=== PATIENT | male | born 2000 | race Caucasian/White ===

== ENCOUNTER 2019-04-07 15:44 | Emergency (ER) | payer OTHER ==
[2019-04-07 15:47] VITALS: BMI 42.9
[2019-04-07 16:00] VITALS: TEMP 98.1
--- NOTE | 2019-04-07 16:29 | PDOC ---
History of Present Illness - General Chief Complaint: Pain, Acute Stated Complaint: ABD PAIN Time Seen by Provider: 04/07/19 16:00 History Source: Patient Exam Limitations: No Limitations - History of Present Illness Initial Comments: 04/07/19 16:23 PCP: None HPI: 19yo M with PMH HLD, obesity, presenting with intermittent abdominal pain for 6 months. Sharp stomach pains - often LLQ or diffuse with movement, no pain with BM, occasional nausea, no vomiting, no fevers or chills, no chest pain. Reports flatus. Travels annually to [place], seen there in October without diagnosis. Endorses diarrhea after spicy foods sometimes. No recent diarrhea, no bloody or dark BMs. NKDA Meds: denies PMH: HLD PSH: Denies SHx: Drinks weekly "to get drunk" and smokes when he drinks, denies illicits Past History - Travel Traveled outside of the country in the last 30 days: No Close contact w/someone who was outside of country & ill: No - Past Medical History Allergies/Adverse Reactions: Allergies Allergy/AdvReac Type Severity Reaction Status Date / Time No Known Allergies Allergy Verified 04/07/19 15:45 Home Medications: Ambulatory Orders NK [No Known Home Medication] 04/07/19 COPD: No - Psycho Social/Smoking Cessation Hx Smoking History: Current some day smoker Number of Cigarettes Smoked Daily: 1 Information on smoking cessation initiated: No Hx Alcohol Use: Yes (OCASIONAL) Drug/Substance Use Hx: No Review of Systems - Review of Systems Able to Perform ROS?: Yes Is the patient limited Guinean proficient: Yes Constitutional: No: Chills, Fever, Night Sweats, Weakness HEENTM: No: Recent change in vision, Nose Congestion, Throat Pain Respiratory: No: Cough, Shortness of Breath, Wheezing, Productive cough Cardiac (ROS): No: Chest Pain, Palpitations, Syncope, Chest Tightness ABD/GI: Yes: Diarrhea (with spicy foods, none recently), Nausea (none recently) . No: Constipated, Vomiting : No: Burning, Dysuria, Frequency, Hematuria Musculoskeletal: No: Muscle Pain, Muscle Weakness Integumentary: No: Bruising, Dryness, Erythema, Pallor, Pruritus Neurological: No: Headache, Numbness, Tingling, Weakness Hematologic/Lymphatic: No: Anemia, Blood Clots, Easy Bleeding All Other Systems: Reviewed and Negative *Physical Exam - Vital Signs Last Vital Signs Temp Pulse Resp BP Pulse Ox 98.1 F 84 18 142/85 100 04/07/19 15:44 04/07/19 15:44 04/07/19 15:44 04/07/19 15:44 04/07/19 15:44 - Physical Exam 04/07/19 16:27 Vitals reviewed, AF, hypertensive 143 SBP GEN: Obese, appears stated age, NAD, comfortable. AAOx3. HEENT: NCAT, EOMI, PERRL. Sclera anicteric, noninjected. No facial asymmetry. Moist mucous membranes. Normal voice. Trachea midline. CV: RRR, S1/S2, no murmurs / rubs / gallops appreciated. LUNG: CTAB, normal work of breathing. No wheezes, rales, rhonchi. No cough. Speaking full sentences. GI: Obese, soft, NTND, +BS, no guarding, no rebound. No masses. Neg CVAT b/l. EXTREMITIES: 2+ distal pulses. No LE edema. No obvious deformities of all extremities. SKIN: Warm, dry, no rashes appreciated, non-jaundiced. PSYCH: Normal mood and affect. Cooperative and appropriate. NEURO: CN grossly intact. Moving all extremities well. Normal strength and sensation grossly. Medical Decision Making - Medical Decision Making 04/07/19 16:39 19yo M with PMH HLD, obesity, presenting with intermittent abdominal pain for 6 months. Concerning for multiple medical comorbidities in a youth - HTN on otherwise unremarkable exam. Will do renal US to evaluate for HTN, provide PCP referral for follow up. R/o new DM. Patient counseled on diet and exercise, risks to his future health and well-being if he doesn't make changes. - UA - POCUS Renal - BGM 04/07/19 17:33 - UA, BGM pending - POCUS with normal kidneys without cysts, masses, or other suspicious lesions Discharge - Discharge Information Problems reviewed: Yes Clinical Impression/Diagnosis: Hypertension Qualifiers: Hypertension type: unspecified Qualified Code(s): I10 - Essential (primary) hypertension Condition: Stable Disposition: HOME - Admission No - Follow up/Referral Referrals: [facility] [place] [Provider Group] - Patient Discharge Instructions Patient Printed Discharge Instructions: DI for Abdominal Pain-Adult, DI for High Blood Pressure in Children, DI for High Cholesterol-Adult Additional Instructions: Please follow up with the provided primary care clinic ([facility]). Call their office to schedule an appointment within the next week. It is very important that you establish skilled nursing care with a general doctor. Return the ED with any worsening, or new concerning symptoms. - Post Discharge Activity
--- NOTE | 2019-04-07 17:40 | PDOC ---
Attending Attestation - Resident Resident Name: Sanchez Walker - ED Attending Attestation I have performed the following: I have examined & evaluated the patient, The case was reviewed & discussed with the resident, I agree w/resident's findings & plan, Exceptions are as noted - HPI HPI: 04/07/19 17:38 19 yo male h/o obesity, high cholesterol currently not on any medication, here with c/o vague intermittent abdominal pain x 6 months. did see a doctor in [place] for this, told he was " too full" denies loose stool except certain foods. no f/c no difficulty with urination, occasioanly sharp pain only worse with pushing, no releiving factors. currently doesn't have the pain. otehrwise stool all nonblooyy. no fever. no weight loss. not on any medications. - Physicial Exam PE: 04/07/19 17:39 awake alert lungs clear bilat heart rrr no mrg abd soft nt obese. ext wwp. no edema. no calf tenderness. - Medical Decision Making 04/07/19 17:39 19 yo male h/o obesity, hld, noted to be htn today . plan d/w pt regarding diet and exercise. concerns for metabolic syndrome. will check ua r/o infection. focused ED ultrasound renal no hydronephrosis. normal size kidney. will recommend fu with [facility] for bp check.
[2019-04-07 18:18] VITALS: BP 145/86; PULSE 78
== END 2019-04-07 18:18 | disposition home or self-care (01) ==
LOC: FER 15:44
DX: I10 Essential (primary) hypertension (principal); E78.5 Hyperlipidemia, unspecified; E66.9 Obesity, unspecified; F17.210 Nicotine dependence, cigarettes, uncomplicated
CPT/HCPCS: 76775; 81003; 82962; 99282-25

== ENCOUNTER 2022-02-02 15:48 | Emergency (ER) | payer SELFPAY ==
[2022-02-02 16:33] VITALS: BP 143/85; PULSE 93; RESP 18; TEMP 98.1; BMI 38.6
[2022-02-02] MEDS ORDERED: MAG HYDROX/AL HYDROX/SIMETH 30 ML UNIT-DOSE CUP PO ONE (18:41)
[2022-02-02] MEDS ORDERED: SODIUM CHLORIDE 1,000 ML IV STA (18:41)
[2022-02-02] MEDS ORDERED: MAG HYDROX/AL HYDROX/SIMETH 30 ML UNIT-DOSE CUP ONE (19:06)
[2022-02-02 19:22] LABS: BASO % 0.7 % (0-2.0); EOS % 3.3 % (0-4.5); HEMATOCRIT 40.8 % (35.4-49); HEMOGLOBIN 13.8 GM/dL (11.7-16.9); LYMPH % 29.3 % (8-40); MCH 30.6 pg (25.7-33.7); MCHC 33.9 g/dl (32.0-35.9); MEAN CELL VOLUME 90.2 fl (80-96); MONO % 5.6 % (3.8-10.2); NEUT % 61.1 % (42.8-82.8); PLATELET COUNT 195 10^3/uL (134-434); RBC 4.53 M/mm3 (4.00-5.60); WHITE BLOOD COUNT 6.6 K/mm3 (4.0-10.0)
[2022-02-02 19:42] LABS: ALBUMIN 4.1 g/dl (3.4-5.0); BLOOD UREA NITROGEN 14.1 mg/dL (7-18); CALCIUM 9.1 mg/dL (8.5-10.1)
[2022-02-02 19:47] LABS: BILIRUBIN,TOTAL 0.5 mg/dL (0.2-1); TOT PROT 7.4 g/dl (6.4-8.2)
== END 2022-02-02 20:47 | disposition home or self-care (01) ==
LOC: JER 15:48
PROC: 3E0337Z Introduction of Electrolytic and Water Balance Substance into Peripheral Vein, Percutaneous Approach (ICD-10-PCS; principal; 2022-02-02)
DX: K29.20 Alcoholic gastritis without bleeding (principal)
CPT/HCPCS: 36415; 80053; 83690; 85025; 99284-25